=== PATIENT | male | born 1990 | race African-American/Black ===

== ENCOUNTER 2023-01-04 19:44 | Emergency (ER) | payer SELFPAY ==
[~2023-01-04] VITALS: Ht 170.2 cm; Wt 90.1 kg
[2023-01-04 19:59] VITALS: BP 159/84; O2SAT 99
[2023-01-04] MEDS ORDERED: LIDOCAINE HCL/EPINEPHRINE 1%-EPI 1:100,000 20 ML VIAL INFIL ONE (21:45)
[2023-01-04] MEDS ORDERED: TETANUS, DIPHTHERIA, PERTUSSIS VAC/PF 0.5ML (>10YR OLD) IM ONE (21:45)
[2023-01-04] MEDS ORDERED: BACITRACIN ZINC OINT UDPKT TOP ONE (21:45)
[2023-01-04] MEDS: ACETAMINOPHEN 325MG TABLET PO ONE ×2 (22:13→22:17)
[2023-01-05 00:30] VITALS: PULSE 96; RESP 18; TEMP 98.6
== END 2023-01-05 00:30 | disposition home or self-care (01) ==
LOC: ER 19:44
DX: S01.511A Laceration without foreign body of lip, initial encounter (principal); X58.XXXA Exposure to other specified factors, initial encounter; Y93.89 Activity, other specified; Y92.89 Other specified places as the place of occurrence of the external cause; Y99.8 Other external cause status
CPT/HCPCS: 90715; 12011; 90471; 99283; J3490; Z7610